=== PATIENT | male | born 1965 | race African-American/Black ===

== ENCOUNTER 2019-08-30 16:18 | Emergency (ER) | payer OTHER ==
[~2019-08-30] VITALS: Ht 177.8 cm; Wt 86.0 kg
[2019-08-30] MEDS ORDERED: DIAZEPAM 5 MG TABLET PO ONE (17:30)
[2019-08-30 20:03] VITALS: BP 135/89
== END 2019-08-30 20:04 | disposition home or self-care (01) ==
LOC: ER 16:18 → EDBD 16:18 → ER 20:04
DX: M54.2 Cervicalgia (principal); M54.5 Low back pain; V49.50XA Passenger injured in collision with unspecified motor vehicles in traffic accident, initial encounter; Y93.89 Activity, other specified; Y92.410 Unspecified street and highway as the place of occurrence of the external cause
CPT/HCPCS: 72100; 99284